=== PATIENT | male | born 1935 | race Caucasian/White ===

== ENCOUNTER 2020-06-19 10:02 | Emergency (ER) | payer MEDICARE ==
[2020-06-19 13:58] LABS: Bilirubin Negative (Negative); Blood, Urine Negative (Negative); Clarity Turbid (Clear); Glucose, Urine (Dipstick) Normal (Negative); Ketone, Urine Negative (Negative); Leukocyte Negative Leu/uL (Negative); Nitrite Negative (Negative); Protein, Urine (Dipstick) 10 mg/dL (Neg-Trace); Specific Gravity, Urine 1.023 (1.002-1.036); pH, Urine 5.5 (5.0-9.0)
== END 2020-06-19 14:50 | disposition home or self-care (01) ==
LOC: ERS 10:02
DX: K59.00 Constipation, unspecified (principal); M10.9 Gout, unspecified; E78.5 Hyperlipidemia, unspecified; E78.00 Pure hypercholesterolemia, unspecified
CPT/HCPCS: 81003; 93005

== ENCOUNTER 2021-10-09 05:46 | Inpatient (IN) | payer MEDICARE ==
[2021-10-09 06:12] LABS: INR-International Normal Ratio 1.1; PTT 27.8 sec (22.9-36.1); Prothrombin Time 14.7 sec (12.0-14.7)
[2021-10-09 06:18] LABS: Hemoglobin 13.4 g/dL (14.0-18.0); Mean Corpuscular HGB CONC 33.1 g/dL (32.0-36.0); Mean Corpuscular Volume 99.8 fL (78.0-98.0); Mean Platelet Volume 7.7 fL (7.4-10.4); Platelet Count 176 thou/uL (130-400); RBC Distribution Width 11.8 % (11.5-14.5); Red Blood Cell (RBC) Count 4.06 mill/uL (4.70-6.10); White Blood Cell (WBC) Count 8.3 thou/uL (4.8-10.8)
[2021-10-09 06:41] LABS: ALT (SGPT) 7 U/L (8-55); AST (SGOT) 16 U/L (5-34); Alkaline Phosphatase 78 U/L (40-110); Anion Gap 10 mmol/L (10-20); BUN (Urea Nitrogen) 11 mg/dL (8.4-25.7); Bilirubin, Total 1.6 mg/dL (0.2-1.2); Calc. Creatinine Clearance 0 mL/min (70-130); Carbon Dioxide 29 mmol/L (23-31); Chloride 107 mmol/L (98-107); Estimated GFR 85; Globulin 2.1 g/dL (2.4-3.5); Glucose 95 mg/dL (83-110); Potassium 4.1 mmol/L (3.5-5.1); Protein, Total 6.1 g/dL (5.8-8.1); Sodium 142 mmol/L (136-145)
[2021-10-09 07:04] LABS: Lymphocytes 22 % (21-51); MDiff Complete? YES; Monocytes 9 % (0-10); Neutrophil 68 % (42-75); Platelet Morphology Comment Appears Adequate; RBC Morphology Normal; Reactive Lymphocytes 1 % (0-10)
[2021-10-09] MEDS ORDERED: Aspirin Chewable 81 MG TAB ONE (07:07)
[2021-10-09 08:29] LABS: SARS-CoV-2 NAA Rapid Test DETECTED (NotDetected)
[2021-10-09] MEDS ORDERED: Enoxaparin Sodium 40 MG/0.4 ML SYRINGE ONE (09:17)
[2021-10-09] MEDS: Aspirin 81 mg Enteric Coated Tablet PO SCH (09:18)
[2021-10-09] MEDS: Enoxaparin Sodium 40 MG/0.4 ML SYRINGE SC SCH (10:08)
[2021-10-09 18:13] VITALS: BMI 23.8
[2021-10-09] MEDS: NIRMATRELVIR 150 MG/RITONAVIR 100 MG TABLET PO SCH (22:27)
[2021-10-09] MEDS: Atorvastatin Calcium 40 MG TAB PO SCH (22:28)
[2021-10-10 05:23] LABS: #Lymphocytes 2.8 thou/uL (1.20-3.40); #Monocytes 1.1 thou/uL (0.11-0.59); #Neutrophils 3.9 thou/uL (1.40-6.50); %Basophils 0.4 % (0.0-1.0); %Eosinophils 0.6 % (0.0-10.0); %Lymphocytes 35.9 % (21.0-51.0); %Monocytes 13.9 % (0.0-10.0); %Neutrophils 49.3 % (42.0-75.0); Hemoglobin 13.7 g/dL (14.0-18.0); Mean Corpuscular HGB CONC 32.4 g/dL (32.0-36.0); Mean Corpuscular Hemoglobin 33.3 pg (27.0-31.0); Mean Platelet Volume 8.1 fL (7.4-10.4); Platelet Count 171 thou/uL (130-400); RBC Distribution Width 11.9 % (11.5-14.5); White Blood Cell (WBC) Count 7.9 thou/uL (4.8-10.8)
[2021-10-10 05:52] LABS: Anion Gap 15 mmol/L (10-20); BUN (Urea Nitrogen) 11 mg/dL (8.4-25.7); Calc. Creatinine Clearance 77 mL/min (70-130); Calcium 8.9 mg/dL (7.8-10.44); Carbon Dioxide 23 mmol/L (23-31); Cardiac Risk 2.3 (Less than 4.5); Chloride 105 mmol/L (98-107); Cholesterol 107 mg/dl (< 200 Desired); Estimated GFR 88; Glucose 78 mg/dL (83-110); HDL Cholesterol 47 mg/dL (>60 Neg Risk); LDL Cholesterol, Calculated 47 mg/dL; Potassium 3.6 mmol/L (3.5-5.1); Sodium 139 mmol/L (136-145); Triglycerides 64 mg/dL (Less than 150)
[2021-10-10] MEDS: Enoxaparin Sodium 40 MG/0.4 ML SYRINGE SC SCH (09:53)
[2021-10-10] MEDS: Aspirin 81 mg Enteric Coated Tablet PO SCH (09:54)
[2021-10-10] MEDS: NIRMATRELVIR 150 MG/RITONAVIR 100 MG TABLET PO SCH ×2 (09:54→20:59)
[2021-10-10] MEDS ORDERED: Docusate 100 MG CAP PO PRN (16:45)
[2021-10-10] MEDS: Atorvastatin Calcium 40 MG TAB PO SCH (20:58)
[2021-10-10] MEDS ORDERED: Acetaminophen 325 MG TAB PO PRN (23:00)
[2021-10-11] MEDS: Aspirin 81 mg Enteric Coated Tablet PO SCH (08:59)
[2021-10-11] MEDS: Enoxaparin Sodium 40 MG/0.4 ML SYRINGE SC SCH (08:59)
[2021-10-11] MEDS: NIRMATRELVIR 150 MG/RITONAVIR 100 MG TABLET PO SCH (08:59)
[2021-10-11] MEDS ORDERED: Finasteride 5 MG TAB PO SCH (09:00)
[2021-10-11 15:23] VITALS: BP 149/74; TEMP 97.4
[2021-10-12] MEDS ORDERED: Ascorbic Acid 500 mg Chewable Tablet PO SCH (09:00)
[2021-10-12] MEDS ORDERED: Zinc Sulfate 220 MG CAP PO SCH (09:00)
== END 2021-10-11 20:09 | disposition home or self-care (01) | DRG 69 ==
LOC: SUATTDRO 05:46 → ERS 05:46 → ERHOLD 06:58 → NEURO 17:53 → OBSVTOIN 10-10 17:00
PROVIDERS: ADMIT Internal Medicine; ATTEND Internal Medicine
PROC: 8E0ZXY6 Isolation (ICD-10-PCS; principal; 2021-10-10)
DX: G45.9 Transient cerebral ischemic attack, unspecified (principal); U07.1 COVID-19; M10.9 Gout, unspecified; I25.10 Atherosclerotic heart disease of native coronary artery without angina pectoris; I10 Essential (primary) hypertension; E78.00 Pure hypercholesterolemia, unspecified; Z88.2 Allergy status to sulfonamides; Z79.82 Long term (current) use of aspirin; Z98.890 Other specified postprocedural states; Z79.899 Other long term (current) drug therapy
CPT/HCPCS: 36415; 36416; 70450; 70551; 71045; 80048; 80053; 80061; 84484; 85025; 85610; 85730; 93005; 93880; 94760; J1650

== ENCOUNTER 2021-10-21 08:45 | Emergency (ER) | payer MEDICARE ==
[2021-10-21 09:42] LABS: ALT (SGPT) 12 U/L (8-55); AST (SGOT) 21 U/L (5-34); Alkaline Phosphatase 74 U/L (40-110); Anion Gap 17 mmol/L (10-20); BUN (Urea Nitrogen) 16 mg/dL (8.4-25.7); Bilirubin, Total 0.8 mg/dL (0.2-1.2); Calc. Creatinine Clearance 0 mL/min (70-130); Calcium 9.4 mg/dL (7.8-10.44); Carbon Dioxide 24 mmol/L (23-31); Chloride 106 mmol/L (98-107); Estimated GFR 85; Globulin 2.9 g/dL (2.4-3.5); Glucose 116 mg/dL (83-110); Potassium 3.4 mmol/L (3.5-5.1); Protein, Total 6.9 g/dL (5.8-8.1); Sodium 144 mmol/L (136-145)
[2021-10-21 09:46] LABS: #Eosinphils 0.1 thou/uL (0.0-0.7); #Lymphocytes 3.3 thou/uL (1.20-3.40); #Monocytes 0.7 thou/uL (0.11-0.59); #Neutrophils 7.4 thou/uL (1.40-6.50); %Basophils 0.4 % (0.0-1.0); %Eosinophils 0.5 % (0.0-10.0); %Lymphocytes 29.1 % (21.0-51.0); %Monocytes 5.9 % (0.0-10.0); %Neutrophils 64.1 % (42.0-75.0); Mean Corpuscular HGB CONC 33.5 g/dL (32.0-36.0); Mean Corpuscular Hemoglobin 32.9 pg (27.0-31.0); Mean Corpuscular Volume 98.2 fL (78.0-98.0); Mean Platelet Volume 7.4 fL (7.4-10.4); Platelet Count 270 thou/uL (130-400); RBC Distribution Width 11.6 % (11.5-14.5); RBC Morphology Normal; Red Blood Cell (RBC) Count 4.25 mill/uL (4.70-6.10); White Blood Cell (WBC) Count 11.5 thou/uL (4.8-10.8)
[2021-10-21] MEDS ORDERED: Morphine 4 MG/ML VIAL ONE (11:36)
[2021-10-21 12:08] LABS: SARS-CoV-2 NAA Rapid Test DETECTED (NotDetected)
== END 2021-10-21 17:15 | disposition short-term general hospital (02) ==
LOC: ERS 08:45
DX: S42.211A Unspecified displaced fracture of surgical neck of right humerus, initial encounter for closed fracture (principal); U07.1 COVID-19; M10.9 Gout, unspecified; E78.00 Pure hypercholesterolemia, unspecified; Z79.82 Long term (current) use of aspirin; Z79.899 Other long term (current) drug therapy; W18.39XA Other fall on same level, initial encounter
CPT/HCPCS: 73030; 80053; 85025; 93005; 94760; 96374; 99284; U0002; 36415; J2270

== ENCOUNTER 2022-10-03 18:43 | Inpatient (IN) | payer MEDICARE ==
[2022-10-03 19:54] LABS: #Monocytes 0.8 thou/uL (0.11-0.59); #Neutrophils 12.8 thou/uL (1.40-6.50); %Basophils 0.1 % (0.0-1.0); %Eosinophils 0.1 % (0.0-10.0); %Lymphocytes 13.1 % (21.0-51.0); %Monocytes 5.3 % (0.0-10.0); %Neutrophils 80.9 % (42.0-75.0); Hematocrit 38.8 % (42.0-52.0); Hemoglobin 13.1 g/dL (14.0-18.0); Mean Corpuscular HGB CONC 33.8 g/dL (32.0-36.0); Mean Corpuscular Hemoglobin 32.6 pg (27.0-31.0); Mean Corpuscular Volume 96.5 fl (78.0-98.0); Platelet Count 222 10x3/uL (130-400); RBC Distribution Width 12.7 % (11.5-14.5); Red Blood Cell (RBC) Count 4.02 mill/uL (4.70-6.10); White Blood Cell (WBC) Count 15.8 10x3/uL (4.8-10.8)
[2022-10-03] MEDS ORDERED: Morphine 4 MG/ML VIAL ONE ×2 (19:54→21:31)
[2022-10-03] MEDS ORDERED: Ondansetron PF 4 MG/2 ML Vial ONE (19:54)
[2022-10-03 20:15] LABS: ALT (SGPT) 19 U/L (8-55); AST (SGOT) 25 U/L (5-34); Alkaline Phosphatase 72 U/L (40-110); Anion Gap 14 mmol/L (10-20); BUN (Urea Nitrogen) 21 mg/dL (8.4-25.7); Bilirubin, Total 0.8 mg/dL (0.2-1.2); Calc. Creatinine Clearance 0 mL/min (70-130); Calcium 9.4 mg/dL (7.8-10.44); Carbon Dioxide 21 mmol/L (23-31); Chloride 110 mmol/L (98-107); Estimated GFR 85; Globulin 2.6 g/dL (2.4-3.5); Glucose 114 mg/dL (83-110); Protein, Total 6.6 g/dL (5.8-8.1); Sodium 141 mmol/L (136-145)
[2022-10-03] MEDS ORDERED: Morphine 2 MG/ML VIAL SLOW IVP PRN (21:23)
[2022-10-03] MEDS ORDERED: Ipratropium/Albuterol 3 ML NEB NEB PRN (21:23)
[2022-10-03] MEDS ORDERED: Ondansetron ODT 4 MG TAB PO PRN (21:23)
[2022-10-03] MEDS ORDERED: hydrALAZINE 20 MG/ML VIAL SLOW IVP PRN (21:23)
[2022-10-03] MEDS ORDERED: Cyclobenzaprine 10 MG TAB PO PRN (21:26)
[2022-10-03 23:51] VITALS: BMI 26.0
[2022-10-04] MEDS: Sodium Chloride 0.9% 1,000 ML IV SCH ×3 (00:01→17:09)
[2022-10-04] MEDS ORDERED: traMADol HCl 50 MG TAB ONE ×2 (00:02→06:00)
[2022-10-04] MEDS ORDERED: Acetaminophen 500 MG TAB ONE ×3 (00:02→06:00)
[2022-10-04] MEDS: Acetaminophen 500 MG TAB PO SCH ×4 (00:08→17:10)
[2022-10-04] MEDS: traMADol HCl 50 MG TAB PO SCH ×4 (00:09→17:10)
[2022-10-04 03:27] LABS: #Eosinphils 0.1 thou/uL (0.0-0.7); #Neutrophils 11.8 thou/uL (1.40-6.50); %Basophils 0.1 % (0.0-1.0); %Eosinophils 0.3 % (0.0-10.0); %Monocytes 6.6 % (0.0-10.0); %Neutrophils 80.5 % (42.0-75.0); Hematocrit 37.9 % (42.0-52.0); Hemoglobin 12.7 g/dL (14.0-18.0); Mean Corpuscular HGB CONC 33.5 g/dL (32.0-36.0); Mean Corpuscular Hemoglobin 32.7 pg (27.0-31.0); Mean Corpuscular Volume 97.7 fl (78.0-98.0); Platelet Count 205 10x3/uL (130-400); RBC Distribution Width 12.8 % (11.5-14.5); Red Blood Cell (RBC) Count 3.88 mill/uL (4.70-6.10); White Blood Cell (WBC) Count 14.7 10x3/uL (4.8-10.8)
[2022-10-04 03:41] LABS: INR-International Normal Ratio 1.1; Prothrombin Time 14.5 sec (12.0-14.7)
[2022-10-04 03:53] LABS: Phosphorus 3.2 mg/dL (2.3-4.7)
[2022-10-04 03:55] LABS: Anion Gap 11 mmol/L (10-20); BUN (Urea Nitrogen) 18 mg/dL (8.4-25.7); Calc. Creatinine Clearance 84 mL/min (70-130); Calcium 9.3 mg/dL (7.8-10.44); Carbon Dioxide 25 mmol/L (23-31); Chloride 109 mmol/L (98-107); Estimated GFR 87; Glucose 128 mg/dL (83-110); Magnesium 1.9 mg/dL (1.6-2.6); Sodium 141 mmol/L (136-145)
[2022-10-04] MEDS ORDERED: ALPRAZolam 0.25 MG TAB PO PRN (06:56)
[2022-10-04] MEDS ORDERED: Melatonin 3 MG TAB PO PRN ×2 (06:56→16:07)
[2022-10-04] MEDS: Polyethylene Glycol 3350 17 GM Packet PO SCH (07:34)
[2022-10-04] MEDS: Gabapentin 100 MG CAP PO SCH ×3 (07:34→22:12)
[2022-10-04] MEDS: Senokot S 8.6-50 MG TAB PO SCH ×2 (07:34→22:13)
[2022-10-04] MEDS: Allopurinol 100 MG TAB PO SCH (07:34)
[2022-10-04] MEDS: Finasteride 5 MG TAB PO SCH (07:34)
[2022-10-04] MEDS ORDERED: CEFAZOLIN 2 GM in Sodium Chloride 0.9% 100 ML IVPB SCH (09:00)
[2022-10-04] MEDS: Famotidine/PF 20 mg/2ml Vial SLOW IVP SCH ×2 (09:03→22:12)
[2022-10-04] MEDS ORDERED: Sodium Chloride 0.9% 100 ML ONE (12:13)
[2022-10-04] MEDS ORDERED: CEFAZOLIN 2 GM VIAL ONE (12:13)
[2022-10-04] MEDS ORDERED: fentaNYL 50 mcg/mL 1 mL Vial ONE (12:20)
[2022-10-04] MEDS ORDERED: Dexamethasone 20 MG/5 ML VIAL ONE (12:38)
[2022-10-04] MEDS ORDERED: PROPOFOL 200 MG/20 ML VIAL ONE (12:38)
[2022-10-04] MEDS ORDERED: Rocuronium Bromide 10 MG/ML (10ML VIAL) ONE (12:38)
[2022-10-04] MEDS ORDERED: Ondansetron PF 4 MG/2 ML Vial ONE (12:38)
[2022-10-04] MEDS ORDERED: Lidocaine 1% PF 5 ML VIAL ONE (12:38)
[2022-10-04] MEDS ORDERED: PACU-Morphine 4MG/ML VIAL SLOW IVP PRN (13:56)
[2022-10-04] MEDS ORDERED: Ondansetron HCl/PF 4 MG/2 ML Vial IVP PRN (13:56)
[2022-10-04] MEDS ORDERED: Promethazine HCl 25 MG/ML VIAL IM PRN (13:56)
[2022-10-04] MEDS ORDERED: SUGAMMADEX SODIUM 200 MG/2 ML VIAL ONE (14:10)
[2022-10-04] MEDS ORDERED: Amiodarone 450 MG in Dextrose 5% in Water 250 ML IVPB SCH ×2 (15:15→15:30)
[2022-10-04] MEDS ORDERED: Amiodarone 150 MG, Admixture Fee 1 EACH in Dextrose 5% in Water 100 ML IVPB SCH (15:30)
[2022-10-04] MEDS ORDERED: Amiodarone 450 MG, Admixture Fee 1 EACH in Dextrose 5% in Water 250 ML IVPB SCH (15:30)
[2022-10-04 17:39] LABS: #Monocytes 0.7 thou/uL (0.11-0.59); #Neutrophils 13.6 thou/uL (1.40-6.50); %Basophils 0.1 % (0.0-1.0); %Eosinophils 0.1 % (0.0-10.0); %Monocytes 4.3 % (0.0-10.0); Hematocrit 39.1 % (42.0-52.0); Hemoglobin 12.8 g/dL (14.0-18.0); Mean Corpuscular HGB CONC 32.7 g/dL (32.0-36.0); Mean Corpuscular Hemoglobin 32.7 pg (27.0-31.0); Platelet Count 202 10x3/uL (130-400); RBC Distribution Width 12.9 % (11.5-14.5); Red Blood Cell (RBC) Count 3.91 mill/uL (4.70-6.10); White Blood Cell (WBC) Count 16.2 10x3/uL (4.8-10.8)
[2022-10-04 18:18] LABS: Anion Gap 16 mmol/L (10-20); BUN (Urea Nitrogen) 14 mg/dL (8.4-25.7); Calc. Creatinine Clearance 86 mL/min (70-130); Calcium 8.8 mg/dL (7.8-10.44); Carbon Dioxide 22 mmol/L (23-31); Chloride 108 mmol/L (98-107); Estimated GFR 88; Glucose 127 mg/dL (83-110); Magnesium 1.9 mg/dL (1.6-2.6); Phosphorus 2.4 mg/dL (2.3-4.7); Potassium 4.6 mmol/L (3.5-5.1); Sodium 141 mmol/L (136-145)
[2022-10-04 20:15] LABS: Troponin I Less than 0.010 ng/mL (< 0.028)
[2022-10-04] MEDS: Atorvastatin Calcium 40 MG TAB PO SCH (22:13)
[2022-10-04] MEDS: Tamsulosin HCl 0.4 MG CAP PO SCH (22:13)
[2022-10-04] MEDS: CEFAZOLIN 2 GM in Sodium Chloride 0.9% 100 ML IVPB SCH (22:15)
[2022-10-05] MEDS: Acetaminophen 500 MG TAB PO SCH ×4 (01:56→17:16)
[2022-10-05] MEDS: traMADol HCl 50 MG TAB PO SCH ×4 (01:57→17:16)
[2022-10-05] MEDS: CEFAZOLIN 2 GM in Sodium Chloride 0.9% 100 ML IVPB SCH ×2 (05:50→14:37)
[2022-10-05 05:53] LABS: #Eosinphils 0.2 thou/uL (0.0-0.7); #Monocytes 0.9 thou/uL (0.11-0.59); #Neutrophils 8.3 thou/uL (1.40-6.50); %Basophils 0.2 % (0.0-1.0); %Eosinophils 1.8 % (0.0-10.0); %Lymphocytes 15.1 % (21.0-51.0); %Neutrophils 74.7 % (42.0-75.0); Hematocrit 33.4 % (42.0-52.0); Hemoglobin 10.9 g/dL (14.0-18.0); Mean Corpuscular HGB CONC 32.6 g/dL (32.0-36.0); Mean Corpuscular Hemoglobin 32.9 pg (27.0-31.0); Mean Corpuscular Volume 100.9 fl (78.0-98.0); Platelet Count 151 10x3/uL (130-400); RBC Distribution Width 12.9 % (11.5-14.5); Red Blood Cell (RBC) Count 3.31 mill/uL (4.70-6.10); White Blood Cell (WBC) Count 11.2 10x3/uL (4.8-10.8)
[2022-10-05 06:22] LABS: Anion Gap 11 mmol/L (10-20); BUN (Urea Nitrogen) 13 mg/dL (8.4-25.7); Calc. Creatinine Clearance 90 mL/min (70-130); Calcium 8.4 mg/dL (7.8-10.44); Carbon Dioxide 24 mmol/L (23-31); Chloride 107 mmol/L (98-107); Estimated GFR 89; Glucose 108 mg/dL (83-110); Magnesium 1.8 mg/dL (1.6-2.6); Phosphorus 2.1 mg/dL (2.3-4.7); Potassium 4.2 mmol/L (3.5-5.1); Sodium 138 mmol/L (136-145)
[2022-10-05 06:45] LABS: Bacteria/HPF None Seen HPF (None Seen); Bilirubin Negative (Negative); Blood, Urine Trace (Negative); CAUTI Indications for Culture Alt mental st,lethar; Clarity Clear (Clear); Glucose, Urine (Dipstick) Normal (Negative); Ketone, Urine Negative (Negative); Leukocyte Negative Leu/uL (Negative); Mucous/LPF Rare LPF (<2+); Nitrite Negative (Negative); Protein, Urine (Dipstick) 10 mg/dL (Neg-Trace); RBC/HPF 0-3 HPF (0-3); Specific Gravity, Urine 1.025 (1.002-1.036); Squamous Epithelial 0-3 HPF (0-3); Urobilinogen Normal mg/dL (Less than 2); WBC/HPF 0-3 HPF (0-3); pH, Urine 5.5 (5.0-9.0)
[2022-10-05 06:50] LABS: Urine Culture Reflex No No
[2022-10-05] MEDS: Senokot S 8.6-50 MG TAB PO SCH ×2 (11:18→21:04)
[2022-10-05] MEDS: Allopurinol 100 MG TAB PO SCH (11:18)
[2022-10-05] MEDS: Aspirin 81 mg Enteric Coated Tablet PO SCH ×2 (11:18→21:02)
[2022-10-05] MEDS: Famotidine/PF 20 mg/2ml Vial SLOW IVP SCH ×2 (11:18→21:06)
[2022-10-05] MEDS: Finasteride 5 MG TAB PO SCH (11:18)
[2022-10-05] MEDS: Polyethylene Glycol 3350 17 GM Packet PO SCH (11:19)
[2022-10-05] MEDS: Gabapentin 100 MG CAP PO SCH ×3 (11:19→21:06)
[2022-10-05] MEDS: Lactated Ringer's 1,000 ML IV SCH (17:16)
[2022-10-05] MEDS: Atorvastatin Calcium 40 MG TAB PO SCH (21:03)
[2022-10-05] MEDS: Tamsulosin HCl 0.4 MG CAP PO SCH (21:04)
[2022-10-06] MEDS: traMADol HCl 50 MG TAB PO SCH ×3 (01:39→12:32)
[2022-10-06] MEDS: Acetaminophen 500 MG TAB PO SCH ×5 (01:39→18:18)
[2022-10-06 06:02] LABS: #Eosinphils 0.1 thou/uL (0.0-0.7); #Monocytes 0.8 thou/uL (0.11-0.59); #Neutrophils 9.2 thou/uL (1.40-6.50); %Basophils 0.3 % (0.0-1.0); %Lymphocytes 14.9 % (21.0-51.0); %Monocytes 6.6 % (0.0-10.0); %Neutrophils 76.9 % (42.0-75.0); Hematocrit 30.5 % (42.0-52.0); Hemoglobin 10.2 g/dL (14.0-18.0); Mean Corpuscular HGB CONC 33.4 g/dL (32.0-36.0); Mean Corpuscular Volume 98.7 fl (78.0-98.0); Mean Platelet Volume 10.1 fL (7.4-10.4); Platelet Count 151 10x3/uL (130-400); RBC Distribution Width 12.7 % (11.5-14.5); Red Blood Cell (RBC) Count 3.09 mill/uL (4.70-6.10)
[2022-10-06 06:24] LABS: Anion Gap 12 mmol/L (10-20); BUN (Urea Nitrogen) 11 mg/dL (8.4-25.7); Calc. Creatinine Clearance 88 mL/min (70-130); Calcium 8.9 mg/dL (7.8-10.44); Carbon Dioxide 24 mmol/L (23-31); Chloride 107 mmol/L (98-107); Estimated GFR 88; Glucose 104 mg/dL (83-110); Potassium 3.7 mmol/L (3.5-5.1); Sodium 139 mmol/L (136-145)
[2022-10-06] MEDS: Famotidine/PF 20 mg/2ml Vial SLOW IVP SCH ×2 (09:00→21:26)
[2022-10-06] MEDS: Finasteride 5 MG TAB PO SCH (09:00)
[2022-10-06] MEDS: Lactated Ringer's 1,000 ML IV SCH (09:00)
[2022-10-06] MEDS: Aspirin 81 mg Enteric Coated Tablet PO SCH ×2 (09:01→21:20)
[2022-10-06] MEDS: Polyethylene Glycol 3350 17 GM Packet PO SCH (09:01)
[2022-10-06] MEDS: Gabapentin 100 MG CAP PO SCH ×2 (09:01→15:15)
[2022-10-06] MEDS: Senokot S 8.6-50 MG TAB PO SCH ×2 (09:01→21:25)
[2022-10-06] MEDS: Allopurinol 100 MG TAB PO SCH (09:03)
[2022-10-06 16:42] LABS: Actual Bicarbonate (HCO3a) 26.6 mEq/L (22-28); Base Excess (BEa) 3.4 mEq/L (-2.0 to +3.0); CO2 Tension 35.3 mmHg (35.0-45.0); Calcium, Ionized (arterial) 1.13 mmol/L (1.12-1.30); Carboxyhemoglobin (COHb) 0.4 gm% (0.0-3.0); Hematocrit-ABG 30 % (42.0-52.0); Hemoglobin (Hb) 10.2 g/dL (14.0-18.0); Potassium - ABG Lab 3.39 mmol/L (3.70-5.30); pH, Arterial 7.495 (7.35-7.45)
[2022-10-06 16:43] LABS: ALV-art Gradient 44.605 mmHg (0-20); Puncture Site RRA
[2022-10-06 17:13] LABS: #Eosinphils 0.2 thou/uL (0.0-0.7); #Monocytes 0.8 thou/uL (0.11-0.59); %Basophils 0.2 % (0.0-1.0); %Eosinophils 2.1 % (0.0-10.0); %Lymphocytes 22.2 % (21.0-51.0); %Monocytes 7.4 % (0.0-10.0); %Neutrophils 67.8 % (42.0-75.0); Hematocrit 29.4 % (42.0-52.0); Mean Corpuscular Hemoglobin 33.2 pg (27.0-31.0); Mean Corpuscular Volume 97.7 fl (78.0-98.0); Mean Platelet Volume 10.5 fL (7.4-10.4); Platelet Count 189 10x3/uL (130-400); RBC Distribution Width 12.7 % (11.5-14.5); Red Blood Cell (RBC) Count 3.01 mill/uL (4.70-6.10); White Blood Cell (WBC) Count 10.4 10x3/uL (4.8-10.8)
[2022-10-06 17:34] LABS: Anion Gap 13 mmol/L (10-20); BUN (Urea Nitrogen) 12 mg/dL (8.4-25.7); Calc. Creatinine Clearance 89 mL/min (70-130); Calcium 8.7 mg/dL (7.8-10.44); Carbon Dioxide 25 mmol/L (23-31); Chloride 104 mmol/L (98-107); Estimated GFR 89; Glucose 90 mg/dL (83-110); Magnesium 1.8 mg/dL (1.6-2.6); Phosphorus 2.3 mg/dL (2.3-4.7); Potassium 3.5 mmol/L (3.5-5.1); Sodium 138 mmol/L (136-145)
[2022-10-06] MEDS: Atorvastatin Calcium 40 MG TAB PO SCH (21:21)
[2022-10-06] MEDS: Tamsulosin HCl 0.4 MG CAP PO SCH (21:24)
[2022-10-07] MEDS: Acetaminophen 500 MG TAB PO SCH ×5 (00:08→23:11)
[2022-10-07 05:42] LABS: #Eosinphils 0.2 thou/uL (0.0-0.7); #Monocytes 0.7 thou/uL (0.11-0.59); #Neutrophils 6.5 thou/uL (1.40-6.50); %Basophils 0.2 % (0.0-1.0); %Eosinophils 2.5 % (0.0-10.0); %Lymphocytes 22.5 % (21.0-51.0); %Monocytes 6.9 % (0.0-10.0); %Neutrophils 67.8 % (42.0-75.0); Hematocrit 29.4 % (42.0-52.0); Hemoglobin 9.7 g/dL (14.0-18.0); Mean Corpuscular Hemoglobin 32.7 pg (27.0-31.0); Mean Platelet Volume 10.2 fL (7.4-10.4); Platelet Count 175 10x3/uL (130-400); RBC Distribution Width 12.7 % (11.5-14.5); Red Blood Cell (RBC) Count 2.97 mill/uL (4.70-6.10); White Blood Cell (WBC) Count 9.6 10x3/uL (4.8-10.8)
[2022-10-07 06:09] LABS: Anion Gap 11 mmol/L (10-20); BUN (Urea Nitrogen) 11 mg/dL (8.4-25.7); Calc. Creatinine Clearance 89 mL/min (70-130); Calcium 8.4 mg/dL (7.8-10.44); Carbon Dioxide 24 mmol/L (23-31); Chloride 105 mmol/L (98-107); Estimated GFR 89; Glucose 94 mg/dL (83-110); Magnesium 1.9 mg/dL (1.6-2.6); Potassium 3.3 mmol/L (3.5-5.1); Sodium 137 mmol/L (136-145)
[2022-10-07] MEDS ORDERED: Magnesium 2 GM/50 ML(in water) 2 GM in Premix Bag 1 BAG IVPB SCH (08:00)
[2022-10-07] MEDS ORDERED: Potassium Chloride 20 MEQ TAB PO SCH (08:30)
[2022-10-07] MEDS ORDERED: Potassium Phosphate 30 MMOL in Sodium Chloride 0.9% 250 ML 250 ML IVPB SCH (09:00)
[2022-10-07] MEDS: Finasteride 5 MG TAB PO SCH (09:39)
[2022-10-07] MEDS: Allopurinol 100 MG TAB PO SCH (09:39)
[2022-10-07] MEDS: Aspirin 81 mg Enteric Coated Tablet PO SCH ×2 (09:39→19:57)
[2022-10-07] MEDS: Famotidine/PF 20 mg/2ml Vial SLOW IVP SCH (09:39)
[2022-10-07] MEDS: Senokot S 8.6-50 MG TAB PO SCH ×2 (09:40→19:58)
[2022-10-07] MEDS: Polyethylene Glycol 3350 17 GM Packet PO SCH (09:40)
[2022-10-07] MEDS: Tamsulosin HCl 0.4 MG CAP PO SCH (19:57)
[2022-10-07] MEDS: Atorvastatin Calcium 40 MG TAB PO SCH (19:58)
[2022-10-08] MEDS: Acetaminophen 500 MG TAB PO SCH ×2 (06:16→12:27)
[2022-10-08] MEDS: Finasteride 5 MG TAB PO SCH (08:49)
[2022-10-08] MEDS: Aspirin 81 mg Enteric Coated Tablet PO SCH (08:49)
[2022-10-08] MEDS: Senokot S 8.6-50 MG TAB PO SCH (08:49)
[2022-10-08] MEDS: Allopurinol 100 MG TAB PO SCH (08:49)
[2022-10-08] MEDS: Polyethylene Glycol 3350 17 GM Packet PO SCH (09:09)
[2022-10-08 15:48] VITALS: BP 125/76; TEMP 98.1
== END 2022-10-08 16:00 | DRG 522 ==
LOC: ERS 18:43 → ERHOLD 21:23 → SURG A 10-04 10:52 → IMCU/EMU 10-04 16:33 → SURG A 10-05 15:46
PROVIDERS: ADMIT Surgery; ATTEND Surgery
PROC: 0SRS0J9 Replacement of Left Hip Joint, Femoral Surface with Synthetic Substitute, Cemented, Open Approach (ICD-10-PCS; principal; 2022-10-04)
PROC: 4A133R1 Monitoring of Arterial Saturation, Peripheral, Percutaneous Approach (ICD-10-PCS; 2022-10-06)
DX: S72.032A Displaced midcervical fracture of left femur, initial encounter for closed fracture (principal); D62 Acute posthemorrhagic anemia; I10 Essential (primary) hypertension; I25.10 Atherosclerotic heart disease of native coronary artery without angina pectoris; C61 Malignant neoplasm of prostate; W18.30XA Fall on same level, unspecified, initial encounter; R00.0 Tachycardia, unspecified; F03.90 Unspecified dementia, unspecified severity, without behavioral disturbance, psychotic disturbance, mood disturbance, and anxiety; G89.11 Acute pain due to trauma; E78.5 Hyperlipidemia, unspecified; Z90.49 Acquired absence of other specified parts of digestive tract; Z90.89 Acquired absence of other organs; Z98.890 Other specified postprocedural states; Z88.2 Allergy status to sulfonamides; Z88.1 Allergy status to other antibiotic agents; Z79.82 Long term (current) use of aspirin; Z79.899 Other long term (current) drug therapy
CPT/HCPCS: 36415; 36600; 70450; 71045; 72125; 72170; 80048; 80053; 81001; 82805; 83735; 83880; 84100; 84146; 84484; 85025; 85610; 85730; 86850; 86900; 86901; 93005; 93010; 96374; 96375; 96376; C1776; J1100; J2270; J2405; J2704; J3010; J3475; J3490; J7050; J7120; S0028